=== PATIENT | female | born 2000 | race Two or more races ===

== ENCOUNTER 2022-04-20 15:00 | Inpatient (IN) | payer SELFPAY ==
[~2022-04-20] VITALS: Ht 162.6 cm; Wt 82.1 kg
[2022-04-20 15:15] VITALS: BP 123/64
[2022-04-20 16:26] VITALS: BP 119/60
[2022-04-20] MEDS ORDERED: GNP28TAB2 PO (17:02)
[2022-04-20 17:17] LABS: HEMATOCRIT 32.5 % (36.0-47.0); HEMOGLOBIN 10.1 g/dl (12.0-15.5); MEAN CORPUSCULAR HEMOGLOBIN 27.2 pg (27.0-33.0); MEAN CORPUSCULAR HGB CONC 31.1 g/dl (32.0-36.5); MEAN CORPUSCULAR VOLUME 87.4 fl (80.0-96.0); PLATELET COUNT, AUTOMATED 180 10^3/uL (150-450); RED BLOOD COUNT 3.72 10^6/uL (4.00-5.40); WHITE BLOOD COUNT 6.2 10^3/uL (4.0-10.0)
[2022-04-20 17:37] VITALS: BP 117/58
[2022-04-20 17:48] LABS: HIV 1&2 SCREEN CENTAUR NEGATIVE (NEGATIVE)
[2022-04-20] MEDS ORDERED: HOME MED LIST COMPLETE! XX SCH (18:10)
[2022-04-20 18:17] LABS: HEPATITIS B SURFACE ANTIGEN NEGATIVE (NEGATIVE)
[2022-04-20 18:42] VITALS: BP 141/68
[2022-04-20] MEDS ORDERED: LACTATED RINGER'S 1000 ML IV STA (19:31)
[2022-04-20] MEDS ORDERED: METHYLERGONOVINE MALEATE 0.2MG/ML 1ML VIAL IM PRN (19:35)
[2022-04-20] MEDS ORDERED: BICITRA 30ML SOLN UDC PO ONE (19:35)
[2022-04-20] MEDS ORDERED: ceFAZolin SOD 2 GM in IV 1 EA IV ONE (19:35)
[2022-04-20] MEDS ORDERED: OXYTOCIN DRIP 30 UNITS in IV 1 EA IV PRN (19:35)
[2022-04-20] MEDS ORDERED: LR 1,000 ML IV SCH ×3 (19:35→21:30)
[2022-04-20] MEDS ORDERED: TRANEXAMIC ACID INJection 1,000 MG in NS 100 ML IV PRN (19:35)
[2022-04-20] MEDS ORDERED: AZITHROMYCIN INJ 500 MG, VIAL MATE ADAPTER 1 EACH in NS 250 ML IV ONE (19:35)
[2022-04-20] MEDS ORDERED: MORPHINE PRES-FREE INJ 10 MG/10 ML VIAL As Ordered ONE (20:23)
[2022-04-20] MEDS ORDERED: OXYTOCIN INJ 10UNITS/ML 1ML VIAL As Ordered ONE (20:23)
[2022-04-20] MEDS ORDERED: fentaNYL 100 MCG/2 ML INJECTION As Ordered ONE (20:23)
[2022-04-20] MEDS ORDERED: ePHEDrine SULFATE 25 MG/5 ML(5MG/ML) SYRINGE As Ordered ONE (20:29)
[2022-04-20] MEDS ORDERED: PHENYLephrine 500MCG 5ML (100MCG/ML) SYRINGE As Ordered ONE (20:29)
[2022-04-20 20:55] LABS: CORD GAS ABE A -5.7; CORD GAS HCO3 A 23.1 MEQ/L; CORD GAS O2 SAT A 26.7 %; CORD GAS PCO2 A 59.6 mmHg; CORD GAS PH A 7.207 UNITS; CORD GAS PO2 A 17.9 mmHg; CORD GAS SBC A 18.3 MEQ/L
[2022-04-20] MEDS ORDERED: KETOROLAC 60MG 2ML VIAL As Ordered ONE (20:55)
[2022-04-20 20:56] LABS: CORD GAS ABE V -7.7; CORD GAS HCO3 V 19.8 MEQ/L; CORD GAS O2 SAT V 89.6 %; CORD GAS PCO2 V 47.8 mmHg; CORD GAS PH V 7.236 UNITS; CORD GAS PO2 V 56.9 mmHg; CORD GAS SBC V 18.2 MEQ/L; CORD GAS TCO2 V 21.3 MEQ/L
[2022-04-20] MEDS ORDERED: RHOGAM 300MCG (1500IU) INJ IM SCH (21:30)
[2022-04-20] MEDS ORDERED: MOM 30ML SUSPENSION UDC PO PRN (21:30)
[2022-04-20] MEDS ORDERED: **NOTE PATIENT COMMENT** MISC XX SCH (21:30)
[2022-04-20] MEDS ORDERED: ONDANSETRON 4MG 2ML VIAL IV PRN ×2 (21:30)
[2022-04-20] MEDS ORDERED: NALOXONE INJ 0.4MG/1ML VIAL IV PRN ×2 (21:30)
[2022-04-20] MEDS: SLF 3 ML SYR IV SCH (21:30)
[2022-04-20] MEDS ORDERED: diphenhydrAMINE 50MG/ML VIAL IV PRN (21:30)
[2022-04-20] MEDS ORDERED: METOCLOPRAMIDE INJ 10MG/2ML VIAL IV PRN (21:30)
[2022-04-20] MEDS ORDERED: SIMETHICONE 80MG CHEW TAB PO PRN (21:30)
[2022-04-20] MEDS ORDERED: fentaNYL 100 MCG/2 ML INJECTION IV PRN (21:30)
[2022-04-20] MEDS ORDERED: OXYTOCIN DRIP 30 UNITS in IV 1 EA IV SCH (21:30)
[2022-04-20] MEDS ORDERED: MEPERIDINE 25 MG/ML 1ML VIAL IV PRN (21:30)
[2022-04-20] MEDS ORDERED: PERCOCET 5MG/325MG TAB PO PRN ×2 (21:30)
[2022-04-20] MEDS ORDERED: OXYTOCIN 30UNITS IN 0.9% NaCl 500ML IV BAG As Ordered ONE (21:31)
[2022-04-20 23:30] VITALS: BP 131/64
[2022-04-21] VITALS (11 sets, daily range): BP systolic 97–147; BP diastolic 51–98
[2022-04-21] MEDS: KETOROLAC 30 MG/ML 1ML VIAL IV SCH ×3 (04:19→16:34)
[2022-04-21] MEDS: SLF 3 ML SYR IV SCH ×2 (05:30→13:30)
[2022-04-21 06:34] LABS: HEMATOCRIT 29.4 % (36.0-47.0); HEMOGLOBIN 9.3 g/dl (12.0-15.5); MEAN CORPUSCULAR HEMOGLOBIN 27.5 pg (27.0-33.0); MEAN CORPUSCULAR HGB CONC 31.6 g/dl (32.0-36.5); PLATELET COUNT, AUTOMATED 169 10^3/uL (150-450); RED BLOOD COUNT 3.38 10^6/uL (4.00-5.40); WHITE BLOOD COUNT 8.8 10^3/uL (4.0-10.0)
[2022-04-21] MEDS: PRENATAL VITAMINS CHEWABLE TABLET PO SCH (09:27)
[2022-04-21] MEDS: DOCUSATE SODIUM 100MG CAPSULE PO SCH ×2 (09:27→22:40)
[2022-04-22] MEDS: IBUPROFEN 800 MG TAB PO SCH ×4 (01:29→18:18)
[2022-04-22 02:00] VITALS: BP 132/61
[2022-04-22 06:00] VITALS: BP 113/58
[2022-04-22] MEDS ORDERED: INFLUENZA QUADRIVALENT PF VACCINE 0.5ML SYRINGE IM.IMMUN ONE (09:00)
[2022-04-22] MEDS ORDERED: MEASLES,MUMPS,RUBELLA VACCINE INJ (MMR-II) SC.IMMUN ONE (09:00)
[2022-04-22] MEDS ORDERED: BOOSTRIX/ADACEL VACCINE (DIPHTH/PERTUSS/ACELL/TETANUS) 0.5ML SYR IM.IMMUN ONE (09:00)
[2022-04-22] MEDS: PRENATAL VITAMINS CHEWABLE TABLET PO SCH (10:16)
[2022-04-22] MEDS: DOCUSATE SODIUM 100MG CAPSULE PO SCH ×2 (10:18→21:23)
[2022-04-22 18:00] VITALS: BP 120/61
[2022-04-23] MEDS: IBUPROFEN 800 MG TAB PO SCH ×3 (00:44→16:40)
[2022-04-23 06:00] VITALS: BP 112/51
[2022-04-23] MEDS: DOCUSATE SODIUM 100MG CAPSULE PO SCH ×2 (08:25→21:52)
[2022-04-23] MEDS: PRENATAL VITAMINS CHEWABLE TABLET PO SCH (08:25)
[2022-04-23 18:03] VITALS: BP 116/56
[2022-04-24] MEDS: IBUPROFEN 800 MG TAB PO SCH ×3 (00:01→16:01)
[2022-04-24 06:00] VITALS: BP 132/60
[2022-04-24] MEDS: DOCUSATE SODIUM 100MG CAPSULE PO SCH ×2 (09:27→20:20)
[2022-04-24] MEDS: PRENATAL VITAMINS CHEWABLE TABLET PO SCH (09:27)
[2022-04-24 18:00] VITALS: BP_SYST 135; BP_SYST 140; BP_DIAS 62; BP_DIAS 88
[2022-04-25] MEDS: IBUPROFEN 800 MG TAB PO SCH ×4 (00:25→21:29)
[2022-04-25 06:00] VITALS: BP 111/65
[2022-04-25] MEDS: PRENATAL VITAMINS CHEWABLE TABLET PO SCH (08:31)
[2022-04-25] MEDS: DOCUSATE SODIUM 100MG CAPSULE PO SCH ×2 (08:31→21:29)
[2022-04-25 18:00] VITALS: BP 109/55
[2022-04-26 05:58] VITALS: BP 108/58
[2022-04-26] MEDS: PRENATAL VITAMINS CHEWABLE TABLET PO SCH (10:53)
[2022-04-26] MEDS: DOCUSATE SODIUM 100MG CAPSULE PO SCH ×2 (10:54→20:05)
[2022-04-26] MEDS: IBUPROFEN 800 MG TAB PO SCH (10:54)
[2022-04-26 18:00] VITALS: BP 123/56
[2022-04-26] MEDS ORDERED: ACETAMINOPHEN TAB 650MG DOSE (2X325MG) PO PRN (19:55)
[2022-04-26] MEDS ORDERED: IBUPROFEN 800 MG TAB PO PRN (19:55)
[2022-04-27] MEDS: PRENATAL VITAMINS CHEWABLE TABLET PO SCH (08:17)
[2022-04-27] MEDS: DOCUSATE SODIUM 100MG CAPSULE PO SCH (08:17)
[2022-04-27] MEDS ORDERED: IBUP80TA PO (12:08)
[2022-04-27] MEDS ORDERED: COLA100C5 PO (12:08)
== END 2022-04-27 13:57 | disposition home or self-care (01) | DRG 540 ==
LOC: M LDO 15:00 → EDBD 15:00 → M LDI 19:30 → M OBS 23:15
PROVIDERS: ADMIT Obstetrics & Gynecology; ATTEND Obstetrics & Gynecology
PROC: 10D00Z1 Extraction of Products of Conception, Low, Open Approach (ICD-10-PCS; principal; 2022-04-20 20:55)
DX: O34.211 Maternal care for low transverse scar from previous cesarean delivery (principal); Z3A.39 39 weeks gestation of pregnancy; Z37.0 Single live birth